=== PATIENT | male | born 1950 | race Caucasian/White ===

== ENCOUNTER 2018-10-11 10:03 | Emergency (ER) | payer MEDICARE ==
[~2018-10-11] VITALS: Ht 177.8 cm; Wt 103.0 kg
--- OUTSIDE RECORDS SUMMARY | ~2018-10-11 | XMS | Clinical Summary ---
Demographics + + + | Address | [address] | | | [place] [address] | + + + | Home Phone | | + + + | Preferred Language | Unknown | + + + | Marital Status | | + + + | Confucianism Affiliation | Unknown | + + + | Race | Unknown | + + + | Ethnic Group | Unknown | + + + Author + + + | Author | [facility] | + + + | Organization | [facility] | + + + | Address | Unknown | + + + | Phone | Unavailable | + + + Support + + +---------+ + | Name | Relationship | Address | Phone | + + +---------+ + | Abhijit Ramirez | ECON | Unknown | | + + +---------+ + | Owen Ramirez | ECON | Unknown | | + + +---------+ + Care Team Providers + +------+ + | Care Jump Iron Machine Presser Name | Role | Phone | + +------+ + | Jeremy Camacho MD | PP | | + +------+ + Allergies + + + + + + | Active Allergy | Reactions | Severity | Noted | Comments | | | | | Date | | + + + + + + | Atorvastatin | Muscle Pain | Medium | 01/21/20 | myalgias | | | | | 17 | | + + + + + + | Trazodone | Other (See Comments) | Medium | 01/21/20 | 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 | Disp. | Refills | Star | End | Statu | | | | | | t | Date | s | | | | | | Date | | | + + +--------+---------+------+------+-------+ | lovastatin | Take 80 mg by mouth | | | | | Activ | | (MEVACOR) 40 MG | daily. | | | | | e | | tablet | | | | | | | + + +--------+---------+------+------+-------+ | nitroGLYCERIN | Place 0.4 mg under | | | | | Activ | | (NITROSTAT) 0.4 MG | the tongue every 5 | | | | | e | | SL tablet | (five) minutes as | | | | | | | | needed. | | | | | | + + +--------+---------+------+------+-------+ | metoprolol | Take 100 mg by mouth | | | | | Activ | | (TOPROL-XL) 50 MG 24 | daily. | | | | | e | | hr tablet | | | | | | | + + +--------+---------+------+------+-------+ | clopidogrel | Take 75 mg by mouth | | | | | Activ | | (PLAVIX) 75 MG | daily. | | | | | e | | tablet | | | | | | | + + +--------+---------+------+------+-------+ | metFORMIN | Take 500 mg by mouth | | | | | Activ | | (GLUCOPHAGE) 500 MG | 2 (two) times daily | | | | | e | | tablet | with meals. | | | | | | + + +--------+---------+------+------+-------+ | amLODIPine | Take 10 mg by mouth | | | | | Activ | | (NORVASC) 10 MG | daily. | | | | | e | | tablet | | | | | | | + + +--------+---------+------+------+-------+ | tadalafil (CIALIS) | Take 5 mg by mouth | | | | | Activ | | 5 MG tablet | as needed for | | | | | e | | | Erectile | | | | | | | | Dysfunction. | | | | | | + + +--------+---------+------+------+-------+ | glimepiride | Take 2 mg by mouth | | | | | Activ | | (AMARYL) 2 MG tablet | every morning before | | | | | e | | | breakfast. | | | | | | + + +--------+---------+------+------+-------+ | omeprazole | Take 20 mg by mouth | | | | | Activ | | (PRILOSEC) 20 MG | every morning before | | | | | e | | capsule | breakfast. | | | | | | + + +--------+---------+------+------+-------+ | Vardenafil HCl | Take 1 tablet by | | | | | Activ | | (STAXYN) 10 MG TBDP | mouth daily as | | | | | e | | | needed. | | | | | | + + +--------+---------+------+------+-------+ | losartan (COZAAR) | Take 1 tablet by | 90 | 1 | 10/0 | 10/0 | Activ | | 50 MG tablet | mouth daily. 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 | 11/05/2014 | | (HCC) | | + + + | CAD (coronary artery disease) | 05/18/2013 | + + + | Dyslipidemia | 05/18/2013 | + + + Family History + + +------+ + | Medical History | Relation | Name | Comments | + + +------+ + | Cancer | Father | | | + + +------+ + | Diabetes type II | Father | | | + + +------+ + | Heart disease | Father | | | + + +------+ + | Diabetes type II | Maternal | | | | | Grandmoth | | | | | er | | | + + +------+ + | Cancer | Mother | | | + + +------+ + + +------+ + + | Relation | Name | Status | Comments | + +------+ + + | Father | | | | + +------+ + + | Maternal Grandmother | | | | + +------+ + + | Mother | | | | + +------+ + + Social History + + + +--------+ + | Tobacco Use | Types | Packs/Day | Years | Date | | | | | Used | | + + + +--------+ + | Former Smoker | Cigarettes | | | Quit: 05/31/1984 | + + + +--------+ + + +---+---+---+ | Smokeless Tobacco: | | | | | Never Used | | | | + +---+---+---+ + + +---------+ + | Alcohol Use | Drinks/We | oz/Week | Comments | | | ek | | | + + +---------+ + | Yes | 1 Cans | 0.6 | nightly | | | of beer | | | + + +---------+ + + + + | Sex Assigned at | Date Recorded | | | | + + + | Not on file | | + + + Last Filed Vital Signs + + + + | Vital Sign | Reading | Time Taken | + + + + | Blood Pressure | 164/90 | 01/20/2017 1:13 PM PDT | + + + + | Pulse | 72 | 01/20/2017 1:13 PM PDT | + + + + | Temperature | 36.9 C (98.4 F) | 04/14/2012 7:41 AM PST | + + + + | Respiratory Rate | 16 | 01/20/2017 1:13 PM PDT | + + + + | Oxygen Saturation | 97% | 01/20/2017 1:13 PM PDT | + + + + | Inhaled Oxygen | - | - | | Concentration | | | + + + + | Weight | 111.1 kg (245 lb) | 01/20/2017 1:13 PM PDT | + + + + | Height | 177.8 cm (5' 10") | 01/20/2017 1:13 PM PDT | + + + + | Body Mass Index | 35.15 | 01/20/2017 1:13 PM PDT | + + + + Plan of Treatment + + + + + | Health Maintenance | Due Date | Last Done | Comments | + + + + + | Vaccine: | | | | | Dtap/Tdap/Td (1 - | 7 | | | | Tdap) | | | | + + + + + | Colon Cancer | | | | | Screening | 8 | | | | (Colonoscopy) | | | | + + + + + | Vaccine: Zoster (1 | | | | | of 2) | 8 | | | + + + + + | Vaccine: | | | | | Pneumococcal 65+ | 3 | | | | Low/Medium Risk (1 | | | | | of 2 - PCV13) | | | | + + + + + | Vaccine: Influenza | | | | | (Season Ended) | 9 | | | + + + + + Results Not on filefrom Last 3 Months Insurance + +--------+ +------+-------+ + | Payer | Benefi | Subscriber | Type | Phone | Address | | | t Plan | ID | | | | | | / | | | | | | | Group | | | | | + +--------+ +------+-------+ + | MEDICARE | MEDICA | [id number] | | | [address] | | | RE | | | | [place] [address] | | | IP-OP | | | | | + +--------+ +------+-------+ + | [facility] | [place] | [id number] | | | | | | | | | | | | | HEALTH | | | | | | | CARE - | | | | | | | AARP | | | | | + +--------+ +------+-------+ + + +--------+ +--------+ + + | Guarantor Name | Accoun | Relation to | Date | Phone | Billing Address | | | t Type | Patient | of | | | | | | | | | | + +--------+ +--------+ + + | BRIDGER SUTHERLAND | Person | Self | [birth year] | Home: | [address] | | al/Fam | | 1950 | [phone] [place] | | | jennifer | | | [phone] | [phone] | + +--------+ +--------+ + +
--- OUTSIDE RECORDS SUMMARY | ~2018-10-11 | XMS | Clinical Summary ---
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
[~2018-10-11 10:03] MED LIST: AMARYL4 MG PO; ASPIRIN EC81 MG PO; ATIVAN1 MG PO; CIALIS5 MG PO; CITALOPRAM HBR20 MG PO; FENOFIBRATE67 MG PO; GLUCOPHAGE500 MG PO; LEVAQUIN500 MG PO; LOVASTATIN40 MG PO; MEVACOR40 MG PO; NITROGLYCERIN0.4 MG SL; NITROSTAT0.4 MG SL; NORVASC5 MG PO; PLAVIX75 MG PO; PRILOSEC20 MG PO; STAXYN10 MG PO; TOPROL XL50 MG PO
[2018-10-11] MEDS ORDERED: LOSARTAN-HCTZ1 EAC2 PO (10:25)
== END 2018-10-11 13:09 | disposition home or self-care (01) ==
LOC: ED 10:03
DX: R20.2 Paresthesia of skin (principal); E11.9 Type 2 diabetes mellitus without complications; I10 Essential (primary) hypertension; Z87.891 Personal history of nicotine dependence; Z88.8 Allergy status to other drugs, medicaments and biological substances; Z79.899 Other long term (current) drug therapy; Z79.84 Long term (current) use of oral hypoglycemic drugs
CPT/HCPCS: 93880; 99284-25

== ENCOUNTER 2021-10-08 09:40 | Emergency (ER) | payer MEDICARE ==
[~2021-10-08] VITALS: Ht 177.8 cm; Wt 109.8 kg
[~2021-10-08 09:40] MED LIST changes: +LOSARTAN-HCTZ1 EAC2 PO
[2021-10-08] MEDS ORDERED: HYDROCODONE-ACE15 M3 PO (11:35)
[2021-10-08] MEDS ORDERED: TAMIFLU75 MG PO (11:35)
== END 2021-10-08 11:50 | disposition home or self-care (01) ==
LOC: ED 09:40
DX: J10.1 Influenza due to other identified influenza virus with other respiratory manifestations (principal); Z20.822 Contact with and (suspected) exposure to COVID-19; E11.9 Type 2 diabetes mellitus without complications; I10 Essential (primary) hypertension; E78.5 Hyperlipidemia, unspecified; M19.90 Unspecified osteoarthritis, unspecified site; Z87.891 Personal history of nicotine dependence; Z88.8 Allergy status to other drugs, medicaments and biological substances; Z79.899 Other long term (current) drug therapy; Z79.84 Long term (current) use of oral hypoglycemic drugs
CPT/HCPCS: 71046; 87502; 99283-25; C9803; U0003

== ENCOUNTER 2021-11-20 06:00 | Day surgery (SDC) | payer MEDICARE ==
[~2021-11-20] VITALS: Ht 177.8 cm; Wt 106.1 kg
[~2021-11-20 06:00] MED LIST changes: +AMLODIPINE BESY10 MG PO; +DICLOFENAC SOD100 G1 TOP; +FENOFIBRATE134 MG PO; +FLOMAX0.4 MG PO; +GLIMEPIRIDE2 MG PO; +HYDROCODONE-ACE15 M3 PO; +INVOKANA100 MG PO; +LOW DOSE ASPIRI81 MG PO; +METOPROLOL SUC100 MG PO; +ROSUVASTATIN CA20 MG PO; +TAMIFLU75 MG PO
--- NOTE | 2021-11-20 08:26 | NUR ---
11/20/21 0826 Ivy Giang 0820-PATIENT ARRIVED TO PACU ON 2L NC RR EVEN. PATIENT LAYING LEFT LATERAL REACTIVE TO VERBAL STIMULI OPENING EYES DENIES PAIN OR NAUSEA. PASSING GAS. PATIENT EASILY DOZES BACK TO SLEEP. IVF INFUSING.
--- NOTE | 2021-11-20 10:10 | OR ---
[facility] [address] [place], [place] [address] Signed DATE OF OPERATION: 11/20/2021 SURGEON: Tara Castorena MD PREOPERATIVE DIAGNOSES: 1. Personal history of multiple colonic polyps starting in 2003 at age 52. 2. Diverticulosis. 3. Mother with colon cancer at age 64. 4. Maternal uncle with colon cancer in his 60s. 5. Maternal aunts x2 with colon cancer in their 60s. 6. Father with colon cancer at age 68. 7. Maternal cousins x2 with colon cancer. POSTOPERATIVE DIAGNOSES: 1. Minimal sigmoid diverticulosis. 2. Hepatic flexure lipoma. 3. 5 mm polyp distal transverse colon. 4. 4 mm polyp distal right colon. 5. 7 mm sessile polyp at periappendiceal orifice. 6. 3 mm polyp at ileocecal valve. 7. 3 mm polyp at hepatic flexure, next to lipoma. 8. 4 mm polyp at mid hepatic flexure. 9. 8 mm bilobed polyp at distal hepatic flexure (snare, clip). 10. 5 mm polyp at 110 cm. 11. 5 mm polyp at 90 cm. PROCEDURE: Colonoscopy with snare polypectomy, hot biopsy and application of clip. ESTIMATED BLOOD LOSS: None. INDICATIONS: Bridger is a 71-year-old gentleman asked to see me for followup colonoscopy. Dr. Jarred Medina performed his colonoscopy at age 52 and removed a tubular adenomatous polyp as well as hyperplastic polyps. I have helped Bridger in 2006, 2007, 2008, 2013 and 2016 with colonoscopies. He has had multiple adenomatous and hyperplastic polyps removed. He always does well with Versed and fentanyl. His polyps are usually less than 7 mm in diameter. He is known to have diverticulosis. We know his mother had colon cancer at age 64 and about age 68 from her cancer. His maternal uncle had Electronically Signed By: TARA CASTORENA MD 11/20/21 1010 PATIENT NAME: BRIDGER SUTHERLAND OPERATIVE REPORT DATE OF : 46 REPORT #: [id number] PHYSICIAN: TARA CASTORENA MD PCP: ELVIN ORTEGA MD REPORT IS CONFIDENTIAL AND NOT TO BE RELEASED WITHOUT AUTHORIZATION [facility] [address] [place], [place] [address] Signed colon cancer in his 60s. His two maternal aunts have had colon cancer in their 60s. His father had colon cancer at age 68. Also, his two maternal cousins have had colon cancer. Currently, Bridger has no lower GI complaints. He has been doing well after his open-heart surgery in August 2020. In the office, I gave him a pamphlet on colonoscopy. He recalls the test well. There is risk including, but not limited to gas bloating, crampy abdominal pain, bleeding, perforation requiring surgery, and missed diagnosis. Again, he is reminded of the need for IV conscious sedation. He said his friend will take him home afterwards. He expressed understanding and wished to proceed. PROCEDURE NOTE: Bridger was taken into our endoscopy suite and placed in the left lateral decubitus position. He was given a total of 150 mcg of fentanyl and 7 mg of Versed to cover the case. A digital rectal exam was performed and he had good sphincter tone. Not much in the way of any external hemorrhoids. He has a fairly enlarged and indurated prostate gland. The adult colonoscope had been introduced and advanced all the way around into the cecum under direct visualization of the camera. It took a little extra sedation and abdominal compression in order to advance the scope. His prep was quite good. The above-mentioned polyps were removed with the help of the hot biopsy forceps. We did use the snare in the distal hepatic flexure. We also placed a clip over that area to bring the mucosa back together. Also, next to his lipoma in the hepatic flexure, there was a tiny polyp and it was removed as well. Again, he has some diverticula in the sigmoid colon. They were small in size, few in number, and scattered about. Once in the rectum, the scope had been retroflexed and really not much in the way of anything above the anal canal. After this, the gas was suctioned out. The colonoscope removed. Bridger tolerated the procedure quite well. RECOMMENDATIONS: I will see Birdger back in my office in 7 to 14 days to review his results. He should consider a followup colonoscopy probably in three years. He has inquired about genetic testing before and I did remind him there is a genetics counselor in the [facility]. That would just involve simple blood work. He seemed less interested at this point in his life. He said he has been estranged from his biologic children for quite some time. Tara Catsorena MD [facility] /[id number] Electronically Signed By: TARA CASTORENA MD 11/20/21 1010 PATIENT NAME: BRIDGER SUTHERLAND OPERATIVE REPORT DATE OF : 46 REPORT #: [id number] PHYSICIAN: TARA CASTORENA MD PCP: ELVIN ORTEGA MD REPORT IS CONFIDENTIAL AND NOT TO BE RELEASED WITHOUT AUTHORIZATION [facility] [address] [place] [place] [address] Signed cc: MD Tara San MD Copies: ELVIN ORTEGA MD, ANDREW L MD ~ Electronically Signed By: TARA CASTORENA MD 11/20/21 1010 PATIENT NAME: BRIDGER SUTHERLAND OPERATIVE REPORT DATE OF : 46 REPORT #: [id number] PHYSICIAN: TAAR CASTORENA MD PCP: ELVIN ORTEGA MD REPORT IS CONFIDENTIAL AND NOT TO BE RELEASED WITHOUT AUTHORIZATION
--- NOTE | 2021-11-20 11:07 | NUR ---
PT ALERT, ORIENTED AND SEEMED RELAXED AND ALL QUESTIONS ASKED WERE ANSWERED. GAVE ENCOURAGEMENT AND BLESSING TO PT OR STAFF CAME TO TAKE PT.
--- NOTE | 2021-11-24 16:03 | PATH ---
[facility] [address] [place], [place] [address] Signed SPECIMEN(S): A COLON POLYP SPECIMEN(S): B DISTAL ASCENDING/RIGHT COLON POLYP SPECIMEN(S): C PERIAPPENDICEAL COLON POLYP SPECIMEN(S): D ILEOCECAL VALVE POLYP SPECIMEN(S): E HEPATIC FLEXURE POLYP LIPOMA SPECIMEN(S): F MID HEPATIC FLEXURE COLON POLYP SPECIMEN(S): G DISTAL HEPATIC FLEXURE COLON POLYP SPECIMEN(S): H COLON POLYP AT 110 CM SPECIMEN(S): I COLON POLYP AT 98 CM SPECIMEN SOURCE: A. COLON POLYP B. DISTAL ASCENDING/RIGHT COLON POLYP C. PERIAPPENDICEAL COLON POLYP D. ILEOCECAL VALVE POLYP E. HEPATIC FLEXURE POLYP LIPOMA F. MID HEPATIC FLEXURE COLON POLYP G. DISTAL HEPATIC FLEXURE COLON POLYP H. COLON POLYP AT 110 CM I. COLON POLYP AT 98 CM CLINICAL HISTORY: History of polyps, diverticulosis, family history of colon cancer. Post-op: Colon polyps, diverticulosis. FINAL PATHOLOGIC DIAGNOSIS: A. Colon, polyp, polypectomy: - Cauterized colonic mucosa with no identifiable histopathologic abnormality. - Negative for malignancy. - See comment. B. Colon, distal ascending/right, polyp, polypectomy: - Tubular adenoma. - Negative for high-grade dysplasia or malignancy. C. Colon, periappendiceal polyp, polypectomy: - Fragments of tubular adenoma. - Negative for high-grade dysplasia or malignancy. D. Colon, ileocecal valve polyp, polypectomy: - Tubular adenoma. - Negative for high-grade dysplasia or malignancy. E. Colon, hepatic flexure polyp "lipoma", polypectomy: - Tubular adenoma. PATIENT NAME: NED SUTHERLAND PATHOLOGY DATE OF : 46 REPORT #: [id number] PHYSICIAN: CHANEL DE LA ROSA PCP: ELVIN ORTEGA MD REPORT IS CONFIDENTIAL AND NOT TO BE RELEASED WITHOUT AUTHORIZATION [facility] [address], [place] [address] Signed - Negative for high-grade dysplasia or malignancy. - See comment. F. Colon, mid hepatic flexure polyp, polypectomy: - Colonic mucosa with mucosal capillary congestion. - Negative for dysplasia or malignancy. G. Colon, distal hepatic flexure polyp, polypectomy: - Fragments of tubular adenoma. - Negative for high-grade dysplasia or malignancy. H. Colon, polyp at 110 cm, polypectomy: - Tubular adenoma. - Negative for high-grade dysplasia or malignancy. I. Colon, polyp at 98 cm, polypectomy: - Hyperplastic polyp. - Negative for dysplasia or malignancy. COMMENT: Regarding specimen A: The degree of cautery artifact precludes histologic interpretation for low-grade dysplasia. Regarding specimen I: Multiple additional deeper levels were examined. Regarding specimen E: The specimen was designated "lipoma", only the mucosa was biopsied and reveals a tubular adenoma. No submucosa is present for evaluation. NAL:cml:C2NR MICROSCOPIC EXAMINATION: Histologic sections of all submitted blocks are examined by light microscopy. These findings, together with the gross examination, support the pathologic diagnosis. GROSS DESCRIPTION: Nine specimens are received in nine containers, labeled "DS." A. The specimen, labeled "DS, 1," and designated on the requisition "colon polyp," is received in formalin and consists of one raymond soft tissue fragment that measures 0.3 cm in greatest dimension. The specimen is entirely submitted in cassette (A1). B. The specimen, labeled "DS, 2," and designated on the requisition "distal ascending/right colon polyp," is received in formalin and consists of one raymond soft tissue fragment that measures 0.3 cm in greatest dimension. The specimen is entirely submitted in cassette (B1). C. The specimen, labeled "DS, 3," and designated on the requisition "alli-appendiceal colon polyp," is received in formalin and consists of four PATIENT NAME: NED SUTHERLAND PATHOLOGY DATE OF : 46 REPORT #: [id number] PHYSICIAN: CHANEL DE LA ROSA PCP: ELVIN ORTEGA MD REPORT IS CONFIDENTIAL AND NOT TO BE RELEASED WITHOUT AUTHORIZATION [facility] [address], [place] [address] Signed raymond soft tissue fragments that measure 0.3 cm in greatest dimension. The specimen is entirely submitted in cassette (C1). Possible friable fragments. D. The specimen, labeled "DS, 4," and designated on the requisition "ileocecal valve polyp," is received in formalin and consists of one raymond soft tissue fragments that measure 0.3 cm in greatest dimension. The specimen is entirely submitted in cassette (D1). E. The specimen, labeled "DS, 5," and designated on the requisition "hepatic flexure polyp lipoma," is received in formalin and consists of one raymond soft tissue fragments that measure 0.2 cm in greatest dimension. The specimen is entirely submitted in cassette (E1). F. The specimen, labeled "DS, 6," and designated on the requisition "mid hepatic flexure colon," is received in formalin and consists of one raymond soft tissue fragment that measures 0.3 cm in greatest dimension. The specimen is entirely submitted in cassette (F1). G. The specimen, labeled "DS, 7," and designated on the requisition "distal hepatic flexure colon," is received in formalin and consists of three raymond soft tissue fragments that measure 0.2 to 0.3 cm in greatest dimension. The specimen is entirely submitted in cassette (G1). H. The specimen, labeled "DS, 8," and designated on the requisition "colon polyp at 110 cm," is received in formalin and consists of two raymond soft tissue fragments that measure 0.3 cm in greatest dimension. The specimen is entirely submitted in cassette (H1). I. The specimen, labeled "DS, 9," and designated on the requisition "colon polyp at 98 cm," is received in formalin and consists of one raymond soft tissue fragment that measures 0.3 cm in greatest dimension. The specimen is entirely submitted in cassette (I1). AT (under the direct supervision of a pathologist) The Gross Description was prepared using a voice recognition system. The report was reviewed for accuracy; however, sound-alike word errors, addition and/or deletions may occur. If there is any question about this report, please contact Client Services. PERFORMING LABORATORY: The technical component was performed by [facility], [address] [place] [id number] (CLIA# [id number]). [facility], [address] [place] [address] (CLIA# [id number]). PATIENT NAME: NED SUTHERLAND PATHOLOGY DATE OF : 46 REPORT #: [id number] PHYSICIAN: CHANEL PATHOLOGY PCP: ELVIN ORTEGA MD REPORT IS CONFIDENTIAL AND NOT TO BE RELEASED WITHOUT AUTHORIZATION [address] [place], [place] [address] Signed Diagnostician: Yadira Casarez MD Pathologist Electronically Signed 11/24/2021 Copies: ~ PATIENT NAME: NED SUTHERLAND PATHOLOGY DATE OF : 46 REPORT #: [id number] PHYSICIAN: CHANEL PATHOLOGY PCP: ELVIN ORTEGA MD REPORT IS CONFIDENTIAL AND NOT TO BE RELEASED WITHOUT AUTHORIZATION
== END 2021-11-20 09:40 | disposition home or self-care (01) ==
LOC: DS 06:00
PROVIDERS: ATTEND Colon & Rectal Surgery
PROC: 0DBL8ZX Excision of Transverse Colon, Via Natural or Artificial Opening Endoscopic, Diagnostic (ICD-10-PCS; 2021-11-20)
PROC: 0DBF8ZX Excision of Right Large Intestine, Via Natural or Artificial Opening Endoscopic, Diagnostic (ICD-10-PCS; 2021-11-20)
PROC: 0DBL8ZX Excision of Transverse Colon, Via Natural or Artificial Opening Endoscopic, Diagnostic (ICD-10-PCS; 2021-11-20)
PROC: 0DBC8ZX Excision of Ileocecal Valve, Via Natural or Artificial Opening Endoscopic, Diagnostic (ICD-10-PCS; principal; 2021-11-20 09:30)
DX: Z12.11 Encounter for screening for malignant neoplasm of colon (principal); D12.1 Benign neoplasm of appendix; D12.2 Benign neoplasm of ascending colon; D12.3 Benign neoplasm of transverse colon; D12.0 Benign neoplasm of cecum; Z80.0 Family history of malignant neoplasm of digestive organs; K57.90 Diverticulosis of intestine, part unspecified, without perforation or abscess without bleeding; Z87.19 Personal history of other diseases of the digestive system; I25.10 Atherosclerotic heart disease of native coronary artery without angina pectoris; E11.9 Type 2 diabetes mellitus without complications; I10 Essential (primary) hypertension; E78.5 Hyperlipidemia, unspecified; M19.90 Unspecified osteoarthritis, unspecified site; Z87.891 Personal history of nicotine dependence; Z86.73 Personal history of transient ischemic attack (TIA), and cerebral infarction without residual deficits; Z79.84 Long term (current) use of oral hypoglycemic drugs
CPT/HCPCS: 99153; G0500; J2250; J3010; J7121

== ENCOUNTER 2022-02-23 07:42 | Day surgery (SDC) | payer MEDICARE ==
[~2022-02-23] VITALS: Ht 177.8 cm; Wt 108.0 kg
[~2022-02-23 07:42] MED LIST changes: +ALEVE220 M1 PO; +METFORMIN HCL500 MG PO; +SILDENAFIL CITR50 MG PO; +VENTOLIN HFA18 GM INH
--- NOTE | 2022-02-23 07:50 | NUR ---
PT AMBULATED INTO DAY SURGERY FOR PROCEEDURES. PT CHANGES SELF INTO GOWN. PT VERBALIZES UNDERSTANDING OF PROCEEDURE AND STATES HIS QUESTIONS HAVE BEEN ANSWERED. COVID SWAB COLLECTED BY SWABING BOTH NARES PER PROTOCOL BY THIS RN. IV STARTED PER PROTOCOL WITH 3ML LAB DRAW FOR BMP PER DR. LYNNE. PT TOLERATED WELL. INTAKE ASSESSMENT DONE.NO ADDITIONAL NEEDS AT THIS TIME. CALL LIGHT WITHIN REACH. BED RAILS UP.
--- NOTE | 2022-02-23 09:29 | NUR ---
THIS RN TO ROOM TO CHECK ON PT. PT UPDATED ON PLAN OF CARE. PT DENIES REQUESTS OR COMPLAINTS. STAND BY ASSIST UP TO RESTROOM, PT REPORTS HE VOIDED WITHOUT ISSUE. STAND BY ASSIST BACK TO ROOM. PT DENIES ADDITIONAL NEEDS OR QUESTIONS. CALL LIGHT WITHIN REACH. BED RAILS UP.
--- NOTE | 2022-02-23 10:40 | NUR ---
THIS RN TO ROOM TO CHECK ON PT. PT CONTINUES RESTING IN BED. DENIES PAIN AND NAUSEA. DENIES NEED TO USE RESTROOM. PT DENIES ADDITIONAL REQUESTS OR COMPLAINTS. CALL LIGHT WITHIN REACH.
--- NOTE | 2022-02-23 11:21 | NUR ---
PT USES CALL LIGHT TO NOTIFY RN OF URGE TO VOID. PT IV SL AND PT AMBULATES WITH STEADY GAIT TO BATHROOM. PT BACK TO DS RM 2 AND PROVIDED WARM BLANKETS. FLUID RUNNING TKO WITH SECOND BAG HUNG. CALL LIGHT WITHIN REACH.
--- NOTE | 2022-02-23 11:30 | NUR ---
DR LYNNE TO BEDSIDE TO VISIT WITH PT. PT VERBALIZES UNDERSTANDING OF PLAN OF CARE AND STATES HIS QUESTIONS HAVE BEEN ANSWERED.
--- NOTE | 2022-02-23 11:40 | NUR ---
ABRAHAM CORBIN, TO BEDSIDE TO DISCUSS PLAN OF CARE WITH PT. PT VERBALIZES UNDERSTANDING AND STATES HIS QUESTIONS HAVE BEEN ANSWERED. NO ADDITIONAL NEEDS AT THIS TIME. AWIATING OR CREW.
--- NOTE | 2022-02-23 12:09 | NUR ---
PT CALL LIGHT ON. PT REQUESTS TO GET UP TO RESTROOM. STAND BY ASSIST UP TO RESTROOM. PT HAS ADDITIONAL UNMEASURED VOID. STAND BY ASSIST BACK TO ROOM. REPORT GIVEN TO JUSTIN SUSTAIN ENGINEER. NO ADDITIONAL REQUESTS OR COMPLAINTS. PT TO OR.
--- NOTE | 2022-02-23 14:55 | NUR ---
PT ALERT, ORIENTED AND HERE FOR FOLLOW UP PROCEDURE. PT SEEMS TO BE DEALING APPROPRIATELY WITH RETURN. HAD GOOD VISIT, ALL QUESTIONS ASKED ANSWERED. PT REQUESTED PRAYER, WILL FOLLOW.
--- NOTE | 2022-02-23 18:45 | NUR ---
PT ARRIVES TO CCU ROOM 126 FOUR MED SURG HOUSE CONVENIENCE AFTER TURP PROCEDURE. PT IS ALERT AND ORIENTED, ANSWERING QUESTIONS AND MAKING JOKES. REPORT RECEIVED FROM PACU NURSE JAYA. PT HAS CBI FLOWING WELL WITH RETURN OF LIGHT PINK URINE. PT REPORTS BEING HUNGRY, HEEL BRUSHER NOTIFIED, WILL BRING SANDWICH BOX FOR PT. VS TAKEN-VSS. CALL LIGHT IN HAND.
--- NOTE | 2022-02-23 19:03 | NUR ---
PT APPEARS TO BE SLEEPING, RESP EVEN AND UNLABORED, SPO2 91%. OXYGEN TITRATED UP FROM 2L TO 4L PER NASAL CANNULA.
--- NOTE | 2022-02-23 19:20 | NUR ---
02/23/221919 Yaneli Aragon 1731 PT ARRIVED IN PACU NON RESPONSIVE TO NOXIOUS STIMULI WITH OPA IN PLACE. BOSS WITH CBI RUNNING WITH LITE RED URINE PRESENT. 1736 PT REACTIVE. OPA REMOVED. 1739 BLOOD SUGAR 164. ANESTHESIA AWARE. [id number] XRAY AT BEDSIDE DOING KUB. 180 C/O PAIN IN PENIS 8/10. FENTANYL 50MCG GIVEN IVP. 181 PAIN DOWN TO 6/10. GLASSES RETURNED TO PT. 1815 PT SNORING. O2 SATS DROPPED TO 88% ON RA. ENCOURAGED COUGH, DEEP BREATHING WITH NO SUCCESS. O2 @ 2L VIA NC PLACED. SATS INCREASED TO 94%. 1830 PAIN DOWN TO 3/10 AND TOLERABLE PER PT. 1845 TO CCU. REPORT GIVEN TO RN'S. ALL QUESTIONS ANSWERED. ALPHONSE 180 STAT LABS DRAWN.
--- NOTE | 2022-02-23 19:55 | NUR ---
PT INITIAL CBI BAG COMPLETE STARTED SECOND BAG, BOSS PATENT AND URINE IN TUUBE PINK AND CLEAR. PT REPORTS MILD PAIN 4/10, ONE TAB PERCOCET PO PRN. WILL MONITOR FOR EFFECT. BEDSIDE BLOOD SUGAR 184 HE WILL BE ADMINISTERED 3 UNITS FROM SLIDING SCALE. PT REPORTS HE WOULD LIKE SOME FOOD, LUNCH BOX AT BEDSIDE, ASSISTED PT TO RAISE HEAD OF BED TO EAT. NO OTHER CONCERNS OR REQUESTS AT THIS TIME.
--- NOTE | 2022-02-23 21:00 | NUR ---
BOSS CATHETER DRAINAED FOR 4200ML, PT HAS HAD 3000ML IN TOTAL AT THIS TIME, PT HAS MAD 1200 URINE SINCE LAST BOSS DRAIN.
--- NOTE | 2022-02-23 21:41 | NUR ---
CBI TITRATED MORE AT THIS TIME, URINE IN BOSS TUBE PALE LIGHT PINK, PATENT AND DRAINING WELL. PT IS 96% ON 4L TITRATED AT THIS TIME DOWN TO 2L N.C.. PT IS RESTING IN BED ALERT TO RN AT BEDSIDE THEN BACK TO SLEEP. FRESH ICE WATER PROVIDED AT THIS TIME.
--- NOTE | 2022-02-23 22:27 | NUR ---
PT RESTING QUIETLY IN BED EYES CLOSED. HE OPENS EYES TO THIS RN ASSESS BOSS CATHETER AT BEDSIDE. THIS RN ASKED PT IF HE HAS PAIN, HE SAID "I HAVE NO PAIN, RESTING COMFORTABLY, THANK YOU" EMPTIED AND CHARTED URINE AMOUNT AFTER SUBTRACTING IRRIGATION FLUIDS. URINE IN BOSS TUBE CLEAR/PINK
--- NOTE | 2022-02-23 22:30 | NUR ---
POST OP TEACHING AT THIS TIME, DISCUSSED WITH PT THAT HE WILL GO HOME WITH BOSS CATHETER AND RETURN TO OFFICE ON WEDNESDAY FOR VOIDING TRIAL. PT SAID "I CANT GO HOME WITH A CATHETER, THE LAST TIME I HAD SO MUCH TROUBLE WITH IT I WANTED TO COMIT SUICIDE" THIS RN ASKED PT IF HE FELT SUICIDAL NOW HE SAID "NO, I JUST CANT GO HOME WITH A CATHETER" HE ALSO SAID " SAID I MIGHT NOT HAVE TO" THIS RN TOLD PT THAT WITH CHECK IN WITH YOUR CARE IN THE AM AND WE CAN DISCUSS IT FURTHER WITH HER. HE SAID "OK, THATS FINE" PT HAS NO OTHER CONCERNS AT THIS TIME
[2022-02-23] MEDS ORDERED: OXYCODONE HCL5 MG PO (23:02)
[2022-02-23] MEDS ORDERED: CIPRO250 MG PO (23:03)
[2022-02-23] MEDS ORDERED: NYSTATIN15 G2 TOP (23:06)
--- NOTE | 2022-02-23 23:14 | NUR ---
PT RESTING IN BED, EYES CLOSED RESP REGULAR AT 16 BPM, NO DISTRESS NOTED. URINE/IRRIGATION IN OBSS TUBE PINK/YELLOW CBI CONTINUED AT LOW RATE FOR NOW.
--- NOTE | 2022-02-24 00:20 | NUR ---
PT RESTING QUIETLY IN BED, EYES CLOSED NO DISTRESS NOTED, URINE/IRRIGATION IN BOSS CATHETER TUBE IS LIGHT PINK/CLEAR NO CLOTS. TITRATE CBI FLOW DOWN. EMPTIED BOSS FOR 1100ML, IRRIGATION FLUID IN 800, PT PRODUCED 300ML URINE IN LAST TWO HOURS.
--- NOTE | 2022-02-24 01:31 | NUR ---
PT RESTING QUIELTY IN BED EYES CLOSED RESP REGULAR AR 16 BREATHS/MIN. PT ALERT TO RN TITRATING CBI. PT REPORTS NO PAIN AND NO OTHER NEEDS AT THIS TIME. HE IS PLEASANT, HE SAID "I AM ENJOYING THE REST"
--- NOTE | 2022-02-24 03:06 | NUR ---
PT OON ROOM AIR TRIAL LAST 1 HOUR. HE IS CURRENTLY AT 88-90%, PROVIDED PT WITH I.S. AND GAVE EDUCATION, PT OXYGEN SATURATION UP TO 92% ON ROOM AIR. WILL MONITOR VIA CONTINUOUS PULSE OXIMETRY ON MONITOR.
--- NOTE | 2022-02-24 05:21 | NUR ---
CBI TURNED OFF AT THIS TIME FOR TRIAL, URINE CURRENTLY YELLOW WITH SLIGHT PINK IN BOSS TUBING. LABS DRAWN FROM IV WITH 5ML WASTE PT REFUSED TO ALLOW VEGETABLE BUNCHER TO DRAW. PT SAID HE IS GOING TO GO BACK TO SLEEP NOW.
--- NOTE | 2022-02-24 07:30 | NUR ---
report recieved. CBI OFF. URINE IN BOSS CATH TUBING IS LIGHT PINK. DENIES PAIN. SITTING UP IN BED WATCHING TV. IVF INFUSING. PLANN IS TO DISCHARGE PATIENT TODAY.
--- NOTE | 2022-02-24 07:40 | NUR ---
DR. LYNNE IN TO SEE PATIENT. DR. LYNNE TALKING WITH PATIENT ABOUT DISCHARGE INSTRUCTIONS. BOSS CATH TO BE DISCONTINUED AT [address] LYNNE. ASSESSMENT DONE.
--- NOTE | 2022-02-24 10:20 | NUR ---
URINE IN 3 WAY BOSS CATH TUBING IS PINK IN COLOR. 3 WAY BOSS CATH DC'D PER DR. GUERA DALE AND PATIENT INSISTANCE. JASPALS IVY.
--- NOTE | 2022-02-24 10:23 | NUR ---
MED REC COMPLETE
--- NOTE | 2022-02-24 11:00 | NUR ---
AMBULATED TO BR TO PASS FLATUS. BACK TO BED WITHOUT INCIDENT. IVF CONTINUE TO INFUSE.
[2022-02-24] MEDS ORDERED: TRIAMCINOLONE A15 G3 TOP (11:02)
--- NOTE | 2022-02-24 11:30 | NUR ---
ACCUCHECK 128. NO INSULIN NEEDED. SITTING UP AT BEDSIDE TO EAT LUNCH.
--- NOTE | 2022-02-24 12:00 | NUR ---
TOOK LUNCH WELL. DENIES PAIN,NAUSEA.
--- NOTE | 2022-02-24 13:15 | NUR ---
BLADDER SCAN DONE, VALUE = 305. DENIES NEED TO VOID. PATIENT ASKING ABOUT DISCHARGE.
--- NOTE | 2022-02-24 13:30 | NUR ---
DISCHARGE INSTRUCTIONS GIVEN WITH PATIENT UNDERSTANDING. IVS DC'D WITH CATH INTACT.
--- NOTE | 2022-02-24 13:30 | NUR ---
discharge instructions GIVEN WITH PATIENT UNDERSTANDING. DR. LYNNE AWARE THAT PATIENT HAS NOT VOIDED SINCE [address] BOSS CATH DC'D AND THE BLADDER SCAN VALUE WAS 305. DR. LYNNE WITHOUT FUTHER ORDERS, OKAY TO DISCHARGE.
--- NOTE | 2022-02-24 13:52 | NUR ---
PT ALERT, ORIENTED AND LAYING IN BED WATCHING TV. PT IS PLEASANT, INFORMED ME THAT SURGERY TOOK LONGER THAN EXPECTED AND THAT HE WILL NEED TO COME BACK LATER THIS WINTER FOR A FOLLOW UP PROCEDURE. PT SEEMED TO TAKE THIS IN NEWS IN STRIDE. PT WILL BE DC'D LATER THIS PM-WAITING ON RIDE HOME HOME. GAVE PT BLESSING AND ENCOURAGEMENT.
--- NOTE | 2022-02-25 17:41 | OR ---
[facility] [address] [facility] [place], [place] [address] Signed DATE OF OPERATION: 02/23/2022 SURGEON: Harley Lynne MD PREOPERATIVE DIAGNOSES: 1. 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 2. 3.5 cm bladder calculus, secondary to trilobar benign prostatic hyperplasia with lower urinary tract symptoms. 3. 7 mm distal left ureteral calculus, status post recent laser lithotripsy of multiple large calculi within the left distal ureter. POSTOPERATIVE DIAGNOSES: 1. 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 2. 3.5 cm bladder calculus, secondary to trilobar benign prostatic hyperplasia with lower urinary tract symptoms. 3. 7 mm distal left ureteral calculus, status post recent laser lithotripsy of multiple large calculi within the left distal ureter. NAMES OF PROCEDURES: 1. Transurethral resection of the prostate. 2. Cystolitholapaxy (complicated) with bladder stone extraction. 3. Laser lithotripsy with basket retrieval of multiple stone fragments within the pendulous urethra. 4. Insertion of a 24-Salvadorean three-way Glez catheter. ANESTHESIA: General. ESTIMATED BLOOD LOSS: 250 mL. COMPLICATIONS: None. SPECIMENS: 1. Prostate chips sent to Pathology for evaluation. 2. A significant number of fragments of the 3.5 cm bladder calculus sent to the lab for stone analysis. The fragments of stones that ended up in the pendulous urethra were also sent to the lab for stone analysis. 3. Drains a 24-Salvadorean three-way Glez catheter, connected to continuous bladder Electronically Signed By: HARLEY LYNNE MD 02/25/22 2990 PATIENT NAME: NED SUTHERLAND OPERATIVE REPORT DATE OF : 46 REPORT #: [id number] PHYSICIAN: HARLEY LYNNE MD PCP: ELVIN ORTEGA MD REPORT IS CONFIDENTIAL AND NOT TO BE RELEASED WITHOUT AUTHORIZATION [facility] [address] [place], [place] [address] Signed irrigation. INDICATIONS FOR PROCEDURE: Mr. Sutherland is a 71-year-old gentleman with a history of trilobar BPH with associated 3.5 cm bladder calculus along with multiple large distal ureteral calculi, presents today to undergo transurethral resection of the prostate in order to definitively allow access to the bladder calculus to perform cystolitholapaxy. A couple of weeks ago, the patient underwent attempted cystolitholapaxy, however, it was not successful because the lithotrite could not reach the bladder stone to the presence of an extremely large and obstructing median lobe of the prostate. However, at that time, I was able to perform successful distal left ureteroscopy with laser lithotripsy of multiple stone fragments within the left distal ureter. Recent CT imaging revealed both an 11 cm distal stone as well as a 7 mm stone just proximal to the larger stone present within the distal left ureter. A recent KUB reveals that the 11 mm stone has since passed from the left distal ureter. However, the 7 mm stone is still present within the left distal ureter. The plan for today is for the patient to undergo transurethral resection of the prostate, followed by cystolitholapaxy for definitive extraction of his large 3.5 cm bladder calculus. Since the 7 mm distal ureteral calculus has not been causing any infection, hydronephrosis, or pain for the patient. This procedure will be deferred for a future date. OPERATIVE FINDINGS: 1. Visual inspection of the urethral meatus reveals mild stenosis of the urethral meatus. This is easily corrected with urethral dilation using Lancaster sounds from 18-Salvadorean to 30-Salvadorean. 2. Diagnostic cystoscopy again reveals the presence of an extremely large median lobe that protrudes into the lumen of the bladder. The large 3.5 cm calculus is very hard to visualize as it is behind the middle lobe of the prostate. I am unable to visualize the bilateral ureteral orifice until after resection of the large median lobe of the prostate. 3. The patient's prostate was resected using a 24-Salvadorean bipolar loop in a stepwise fashion as per routine. The large middle lobe was resected first. All the while, I made sure that I was aware of the location of the bilateral ureteral orifices. I then resected the left and then right lateral lobe of the prostate. The patient was noted to also have a very steep bladder neck. Despite this, I was able to resect all three lobes of the prostate successfully today. 4. The lithotrite was advanced into the patient's bladder and I was able to crush the large bladder calculus under direct visualization using the lithotrite. This process took approximately 3-1/2 hours. The remainder of the time was devoted to the transurethral resection of the prostate. Multiple fragments were created by crushing the large stone using the lithotrite. It was very tedious and time consuming to then irrigate all the stone fragments from the patient's bladder via a 26-Salvadorean sheath. Electronically Signed By: HARLEY LYNNE MD 02/25/22 4739 PATIENT NAME: NED SUTHERLAND OPERATIVE REPORT DATE OF : 46 REPORT #: [id number] PHYSICIAN: HARLEY LYNNE MD PCP: ELVIN ORTEGA MD REPORT IS CONFIDENTIAL AND NOT TO BE RELEASED WITHOUT AUTHORIZATION [facility] [address] [place] [address] Signed Overall, about 98% of the stone burden was successfully extracted from the patient's bladder today. 5. Overall, the procedure took approximately 5 hours and again was very difficult and tedious in particular with respect to the large bladder calculus. The [employer] rep was present to assist in using the lithotrite today as I had never used one before. By the end the procedure, I was unable to perform ureteroscopy due to the swelling and active friability of the trigone secondary to the extended period of time that was required to fragment the very large bladder calculus. 6. At the end of procedure, a 24-Salvadorean three-way Glez catheter was inserted into the patient's bladder and connected to continuous bladder irrigation. DESCRIPTION OF PROCEDURE: After informed consent was obtained, the patient was taken back to the operating room. He was transferred from the [facility] to the operating room table, where general anesthesia was induced. He was placed in the dorsal lithotomy position. His genitalia prepped and draped in standard sterile fashion. Using a 30-degree lens on 22.5-Salvadorean introducer, rigid cystoscope was inserted through his urethra into his bladder under direct visualization. Panendoscopic views of bladder then obtained. Please see above findings. I then switched the cystoscope out for a 26-Salvadorean sheath with a visual obturator. The sheath was placed easily and without difficulty, especially after his urethral meatus was dilated from 18-Salvadorean to 30-Salvadorean using Lancaster sounds without difficulty. Once a 26-Salvadorean sheath was then placed, I switched the visual obturator out for the resectoscope and then began to resect the patient's large median lobe using a 24-Salvadorean bipolar loop. The resection was performed without any difficulty. All the while, I kept a good eye on the bilateral ureteral orifices to avoid any iatrogenic damage to them during this portion of resection. I then resected both the left and then right lateral lobe of the prostate, which was a bit more complicated due to the significant bladder neck elevation caused by the prostate. All the while adequate hemostasis was achieved and maintained via bipolar cautery. At the end of the procedure, I re-evaluated the bilateral ureteral orifices and they both appeared to be effluxing clear urine and in their normal anatomic location. I then turned my attention to the large bladder calculus measuring approximately 3.5 cm. So, I removed the resectoscope and advanced the lithotrite under direct visualization into the patient's bladder. I then expanded the jaws of the lithotrite and mainly crushed the stone. The stone was quite hard and was very difficult to fragment. This portion of the procedure took approximately 3-1/2 hours. I then irrigated as much of the stone fragments as I could using the 26-Salvadorean sheath and a Nirmala syringe. At the end of the copious amounts of irrigation that was performed, I did see a couple of large stones still present within the bladder. I attempted to pull one of these large stones from the bladder using a Zero tip basket. The stone ultimately got lodged within the proximal pendulous urethra. I pushed the stone back into the bulbar urethra and then I performed laser lithotripsy using a holmium laser at 8 and 0.8 settings using a 400 micron fiber. Electronically Signed By: HARLEY LYNNE MD 02/25/22 8325 PATIENT NAME: NED SUTHERLAND OPERATIVE REPORT DATE OF : 46 REPORT #: [id number] PHYSICIAN: HARLEY LYNNE MD PCP: ELVIN ORTEGA MD REPORT IS CONFIDENTIAL AND NOT TO BE RELEASED WITHOUT AUTHORIZATION [address] [address] Signed The stone was quite difficult to fragment, but over time, the stone did successfully fragment into smaller pieces where in I was able to extract the stone safely using the Zero tip basket from the bulbar urethra. Once this was performed, I re-evaluated the patient's urethra and did not see any evidence of any iatrogenic injury to the pendulous urethra. I then re-evaluated the bladder and I did see one residual fragment present within the bladder. This fragment measured approximately 6-7 mm. I made the decision at that time to abort the procedure because the procedure had already was now running at a total of 5 hours and I chose to end the procedure, as I did not think it was safe for the patient to be under anesthesia for this period of time. So I removed the cystoscope and then inserted a 24-Salvadorean three-way Glez catheter into the patient's bladder with the assistance of a 0.035 Sensor wire. The Sensor wire was pulled and the patient's the Glez balloon was filled with 30 mL of sterile water. The catheter was then connected to continuous bladder irrigation. I then performed a digital rectal examination, which revealed a 60 g prostate that is soft, smooth and symmetric with no focal nodules. The procedure was then terminated. The patient tolerated the procedure well without any complication. He will now be transferred to the postanesthesia care unit in stable condition. DISPOSITION: I discussed the details of today's procedure with the patient and answered all of his questions. I notified him that 98% of his bladder calculus has now been extracted. The cause of the bladder calculus has also been resected, which likely is very large median lobe of the prostate. Unfortunately, we did not have time today to actually perform the ureteroscopic extraction of his remaining 7 mm distal left ureteral calculus. This will be performed at a future date along with extraction of the one remaining stone present within his bladder that measures approximately 6-7 mm. The patient will be sent home with oxycodone 5 mg, one tablet, p.o. q.6 hours p.r.n. pain, dispense #20, along with Cipro 250 mg p.o. b.i.d. for a total of 7 days. He will remain with us overnight and his CBI will be weaned off to keep his urine clear to light pink in color. I anticipate that he will be sent home tomorrow with his Glez catheter to gravity drainage. Harley Lynne MD AR/MODL /[id number] Electronically Signed By: HARLEY LYNNE MD 02/25/22 174 PATIENT NAME: NED SUTHERLAND OPERATIVE REPORT DATE OF : 46 REPORT #: [id number] PHYSICIAN: HARLEY LYNNE MD PCP: ELVIN ORTEGA MD REPORT IS CONFIDENTIAL AND NOT TO BE RELEASED WITHOUT AUTHORIZATION [facility] [address] [place] [address] [place], [place] [address] Signed Copies: ~ Electronically Signed By: HARLEY LYNNE MD 02/25/22 174 PATIENT NAME: NED SUTHERLAND OPERATIVE REPORT DATE OF : 46 REPORT #: [id number] PHYSICIAN: HARLEY LYNNE MD PCP: ELVIN ORTEGA MD REPORT IS CONFIDENTIAL AND NOT TO BE RELEASED WITHOUT AUTHORIZATION
--- NOTE | 2022-02-26 12:35 | PATH ---
[facility] [address] [place], [place] [address] Signed SPECIMEN(S): A PROSTATE CHIPS SPECIMEN SOURCE: A. PROSTATE CHIPS CLINICAL HISTORY: Pre: BPH, bladder stone. Post: TURP, bladder stone, lithotripsy FINAL PATHOLOGIC DIAGNOSIS: Prostate, transurethral resection: - Benign prostatic tissue with glandular and stromal hyperplasia. BRP:mfr:C2NR MICROSCOPIC EXAMINATION: Histologic sections of all submitted blocks are examined by light microscopy. These findings, together with the gross examination, support the pathologic diagnosis. GROSS DESCRIPTION: The specimen, labeled "DS, per the requisition, prostate chips," is received in formalin and consists of 1 gram, 8.7 x 8.6 x 2.4 similar aggregate multiple raymond-pink to betancourt rubbery tissue fragment with minimal clotted blood interspersed. The fragments range from 0.6 to 1.3. No yellow or orange discolorations are noted. Adult Protective Caseworker tissue is submitted in toto in cassette A1-A8. CA (under the direct supervision of a pathologist) The Gross Description was prepared using a voice recognition system. The report was reviewed for accuracy; however, sound-alike word errors, addition and/or deletions may occur. If there is any question about this report, please contact Client Services. PERFORMING LABORATORY: The technical component was performed by [facility], [address] [place] [id number] (CLIA# [id number]). Professional interpretation was performed by [facility], [address] [place] [id number] (CLIA# [id number]). Diagnostician: Daniel Brock MD Pathologist Electronically Signed 02/26/2022 PATIENT NAME: NED SUTHERLAND PATHOLOGY DATE OF : 46 REPORT #: [id number] PHYSICIAN: [facility] PCP: ELVIN ORTEGA MD REPORT IS CONFIDENTIAL AND NOT TO BE RELEASED WITHOUT AUTHORIZATION [address] [address] Signed Copies: ~ PATIENT NAME: NED SUTHERLAND PATHOLOGY DATE OF : 46 REPORT #: [id number] PHYSICIAN: [facility] PCP: ELVIN ORTEGA MD REPORT IS CONFIDENTIAL AND NOT TO BE RELEASED WITHOUT AUTHORIZATION
== END 2022-02-24 13:49 | disposition home or self-care (01) ==
LOC: CCU 07:42 → DS 07:42 → CCU 18:50 → DS 02-24 13:49
PROVIDERS: ATTEND Urology
PROC: 0TC78ZZ Extirpation of Matter from Left Ureter, Via Natural or Artificial Opening Endoscopic (ICD-10-PCS; 2022-02-23)
PROC: 0VT08ZZ Resection of Prostate, Via Natural or Artificial Opening Endoscopic (ICD-10-PCS; principal; 2022-02-23 10:30)
PROC: 0TCB8ZZ Extirpation of Matter from Bladder, Via Natural or Artificial Opening Endoscopic (ICD-10-PCS; 2022-02-23 10:30)
DX: N40.1 Benign prostatic hyperplasia with lower urinary tract symptoms (principal); I25.10 Atherosclerotic heart disease of native coronary artery without angina pectoris; E11.9 Type 2 diabetes mellitus without complications; I10 Essential (primary) hypertension; E78.5 Hyperlipidemia, unspecified; Z87.891 Personal history of nicotine dependence; N20.1 Calculus of ureter; N21.0 Calculus in bladder; N13.8 Other obstructive and reflux uropathy; N20.9 Urinary calculus, unspecified; Z20.822 Contact with and (suspected) exposure to COVID-19
CPT/HCPCS: 36415; 74018; 80048; 82365; 85025; 87502; C1769; J0690; J0696; J1100; J1160; J1815; J1885; J2250; J2405; J2704; J2765; J3010; J7030; J7121; U0003